=== PATIENT | male | born 1955 | race Caucasian/White ===

== ENCOUNTER 2020-02-25 08:46 | Day surgery (SDC) | payer OTHER ==
[~2020-02-25] VITALS: Ht 170.2 cm; Wt 124.9 kg
[~2020-02-25 08:46] MED LIST: ALBU90OI6 INH; BENADRYL25 MG PO; BUPR150ER PO; CELE100 PO; DESCOVY 200-251 EAC1 PO; KRILL OIL500 MG PO; LOSA50 PO; METF500 PO; Pravachol40 MG PO; SYMBICORT 160-4.6 GM
--- NOTE | 2020-02-25 09:56 | NUR ---
02/25/20 0956 REGAN CRABTREE ONE UNSUCCESSFUL ATTEMPT BY AYSE SECOND ATTEMPT BY RN UNSUCCESSFUL THIRD ATTEMPT BY RN SUCCESSFUL IN RIGHT FORARM PT TOW
== END 2020-02-25 10:58 | disposition home or self-care (01) ==
LOC: ORSCSDS 08:46
PROVIDERS: Student in an Organized Health Care Education/Training Program
PROC: 0DBN8ZX Excision of Sigmoid Colon, Via Natural or Artificial Opening Endoscopic, Diagnostic (ICD-10-PCS; principal; 2020-02-25 10:15)
DX: Z12.11 Encounter for screening for malignant neoplasm of colon (principal); K63.5 Polyp of colon; K57.30 Diverticulosis of large intestine without perforation or abscess without bleeding; I10 Essential (primary) hypertension; E11.9 Type 2 diabetes mellitus without complications; E66.01 Morbid (severe) obesity due to excess calories; Z68.41 Body mass index [BMI] 40.0-44.9, adult; Z79.84 Long term (current) use of oral hypoglycemic drugs; Z79.899 Other long term (current) drug therapy; Z87.891 Personal history of nicotine dependence
CPT/HCPCS: 88305; J2250; J2405; J2704; J7120

== ENCOUNTER 2023-06-12 09:49 | Day surgery (SDC) | payer OTHER ==
[~2023-06-12] VITALS: Ht 170.2 cm; Wt 116.4 kg
[~2023-06-12 09:49] MED LIST changes: +TADA10TA; +TAMS.4ER PO
[2023-06-12 10:32] VITALS: BP 166/76
--- NOTE | 2023-06-12 10:42 | NUR ---
History, Chart, Medications and Allergies reviewed before start of procedure. Lungs clear T/O to Auscultation. Patient confirms NPO status and agrees with scheduled surgery. Pre-Op teaching done. Pt verbalizes understanding. Patient States Post-Procedure ride home has been arranged. Patient states colon prep results clear.
--- NOTE | 2023-06-12 11:25 | NUR ---
06/12/23 1125 Berto Maguire History, Chart, Medications and Allergies reviewed before start of procedure. MONITOR INTACT WITH CONTINUOUS PULSE OXIMETRY, CONTINUOUS END TITAL CO2, AND INTERMITTENT BLOOD PRESSURE. 3-LEAD EKG REVIEWED WITH PHYSICIAN PRIOR TO START OF PROCEDURE. O2 VIA N/C INTACT THROUGHOUT SEDATION/PROCEDURE. See Anesthesia record, DR REYES.
[2023-06-12 11:50] VITALS: BP 128/67
[2023-06-12 12:10] VITALS: BP 140/70
--- NOTE | 2023-06-12 12:26 | NUR ---
DISCHARGE NOTE Discharge instructions reviewed with patient. Patient verbalizes understanding. Copy given to patient to take home. Patient up to Ambulate independently. Gait steady. Discharged via wheelchair to private car for ride home with discharge instructions in hand.
== END 2023-06-12 23:17 | disposition home or self-care (01) ==
LOC: ORSCMMR 09:49 → ORD 11:15 → ORSCMMR 11:15
PROVIDERS: Internal Medicine Gastroenterology
PROC: 0DBM8ZX Excision of Descending Colon, Via Natural or Artificial Opening Endoscopic, Diagnostic (ICD-10-PCS; principal; 2023-06-12 11:15)
DX: Z12.11 Encounter for screening for malignant neoplasm of colon (principal); D12.4 Benign neoplasm of descending colon; I10 Essential (primary) hypertension; E11.9 Type 2 diabetes mellitus without complications; F32.A Depression, unspecified; J45.909 Unspecified asthma, uncomplicated; E78.00 Pure hypercholesterolemia, unspecified; E66.01 Morbid (severe) obesity due to excess calories; Z68.41 Body mass index [BMI] 40.0-44.9, adult; Z87.891 Personal history of nicotine dependence; Z79.84 Long term (current) use of oral hypoglycemic drugs; Z79.899 Other long term (current) drug therapy
CPT/HCPCS: 82947; 88305; J2704; J7120

== ENCOUNTER 2024-04-02 09:32 | Day surgery (SDC) | payer OTHER ==
[~2024-04-02] VITALS: Ht 170.2 cm; Wt 121.4 kg
[~2024-04-02 09:32] MED LIST changes: +Balanced Salt Epinephrine Irrigation Solution 500 mL IR SCH; +FINA5 PO; +Feldene20 MG PO; +Lidocaine HCl/Pf 1% 5 ML VIAL XX SCH; +Moxifloxacin HCL 0.5 MG/0.1 ML 0.4MLSYR RIGHTEYE SCH; +PHENYLEPHRINE\\TROPICAMIDE\\TETRACAINE OPHTHALMIC DILATING SOLN RIGHTEYE PRN; +Povidone-Iodine 450 DROP/30 ML Solution RIGHTEYE SCH; +Triamcinolone Inj Susp 40 MG / ML 1ML Vial INJ SCH; +Triamcinolone Inj Susp 40 MG / ML 1ML Vial ONE
[2024-04-02] MEDS ORDERED: Midazolam HCl 1MG / ML 2ML Vial ONE (09:48)
[2024-04-02] MEDS ORDERED: Tetracaine HCl 0.5% Opth Soln 15 ml XX ONE (10:33)
[2024-04-02] MEDS ORDERED: FentaNYL Citrate 50 MCG/ML 2 ML Injection ONE (10:36)
[2024-04-02 10:57] VITALS: BP 131/65
== END 2024-04-02 11:14 | disposition home or self-care (01) ==
LOC: ORSCSDS 09:32
PROVIDERS: Ophthalmology
PROC: 08RJ3JZ Replacement of Right Lens with Synthetic Substitute, Percutaneous Approach (ICD-10-PCS; principal; 2024-04-02 11:00)
DX: E11.36 Type 2 diabetes mellitus with diabetic cataract (principal); H25.811 Combined forms of age-related cataract, right eye; Z96.1 Presence of intraocular lens; J45.909 Unspecified asthma, uncomplicated; I10 Essential (primary) hypertension; E66.9 Obesity, unspecified; Z68.41 Body mass index [BMI] 40.0-44.9, adult; Z79.84 Long term (current) use of oral hypoglycemic drugs; Z79.899 Other long term (current) drug therapy
CPT/HCPCS: 82947; J2250; J3010; J3301; V2632